=== PATIENT | female | born 1960 ===

== ENCOUNTER 2024-07-26 11:26 | Emergency (ER) ==
[~2024-07-26] VITALS: Ht 162.6 cm; Wt 62.6 kg
== END 2024-07-26 15:11 | disposition left against medical advice (07) | DRG 951 ==
LOC: ED 11:26 → LWOBS 14:57 → ED 14:57 → LWOBS 15:11
DX: Z53.21 Procedure and treatment not carried out due to patient leaving prior to being seen by health care provider (principal)